=== PATIENT | male | born 1950 | race Caucasian/White ===

== ENCOUNTER → 2016-09-09 | Outpatient (CLI) | payer MEDICARE ==
[~2016-09-09] MED LIST: ALBU8.5H3 INH; AMLO5TAB2 PO; AMOX1TAB12 PO; CARV12.52 PO; CHLO25TA PO; HYDR-3144 PO; LACT1CAP24 PO; METO25TA91 PO; OMNIPAQUE 350 MG/ML, 100ML BOTTLE ONE; OXYC5TAB3 PO
== END | disposition home or self-care (01) ==
LOC: CFH 14:16
PROVIDERS: ATTEND Specialist
DX: C34.91 Malignant neoplasm of unspecified part of right bronchus or lung (principal); C34.92 Malignant neoplasm of unspecified part of left bronchus or lung; R59.9 Enlarged lymph nodes, unspecified
CPT/HCPCS: 71260; 74177; Q9967

== ENCOUNTER 2016-09-14 19:37 | Inpatient (IN) | payer MEDICARE ==
[~2016-09-14] VITALS: Ht 162.6 cm; Wt 71.4 kg
[~2016-09-14 19:37] MED LIST changes: -OMNIPAQUE 350 MG/ML, 100ML BOTTLE ONE
[2016-09-14] MEDS ORDERED: ONDANSETRON 2MG/ML, 2ML IVPush ONE (20:30)
[2016-09-14] MEDS ORDERED: SODIUM CHLORIDE 0.9% 1,000ML IVBOLUS ONE (20:30)
[2016-09-14] MEDS ORDERED: SODIUM CHLORIDE FLUSH 10ML SYR IVF ONE (20:30)
[2016-09-14] MEDS ORDERED: HYDROmorphone 1 MG/ML, 1ML ONE (21:19)
[2016-09-14] MEDS ORDERED: ONDANSETRON 2MG/ML, 2ML ONE (21:20)
[2016-09-14 21:35] LABS: BLOOD UREA NITROGEN 17 mg/dL (7-18)
[2016-09-14 21:52] LABS: IS PT STATUS REG ER OR PRE ER? YES
[2016-09-14] MEDS: HYDROmorphone 1 MG/ML, 1ML IVPush PRN (22:16)
[2016-09-14] MEDS ORDERED: OMNIPAQUE 350 MG/ML, 100ML BOTTLE ONE (22:30)
[2016-09-14] MEDS ORDERED: SODIUM CHLORIDE 0.9% 1,000 ML IV ONE (23:13)
[2016-09-14] MEDS ORDERED: ONDANSETRON 2MG/ML, 2ML IVPush PRN (23:30)
[2016-09-14] MEDS ORDERED: HYDROmorphone 1 MG/ML, 1ML IVPush PRN (23:30)
[2016-09-15] MEDS ORDERED: HEPARIN 5,000 UNITS/ML, 1ML SQ SCH
[2016-09-15] MEDS ORDERED: CEFTRIAXONE PMX 1GM/50ML 50 ML IV SCH
[2016-09-15] MEDS ORDERED: POLYETHYLENE GLYCOL 17 GM PACKET PO PRN
[2016-09-15] MEDS ORDERED: hydrALAzine 20 MG/ML, 1ML IV PRN
[2016-09-15] MEDS ORDERED: ONDANSETRON 2MG/ML, 2ML IVP PRN
[2016-09-15] MEDS ORDERED: AZITHROMYCIN 500 MG in SODIUM CHLORIDE 0.9% 250 ML IV SCH
[2016-09-15] MEDS ORDERED: BISACODYL 10 MG SUPP PR PRN
[2016-09-15] MEDS ORDERED: ACETAMINOPHEN 325 MG TABLET PO PRN
[2016-09-15] MEDS ORDERED: hydrALAzine 20 MG/ML, 1ML ONE (00:06)
[2016-09-15] MEDS ORDERED: CEFTRIAXONE PMX 2GM/50ML 50 ML ONE (00:16)
[2016-09-15] MEDS: CEFTRIAXONE PMX 2GM/50ML 50 ML IV SCH ×2 (00:22→12:11)
[2016-09-15] MEDS ORDERED: HYDROmorphone 1 MG/ML, 1ML ONE (00:24)
[2016-09-15] MEDS: HYDROmorphone 1 MG/ML, 1ML IVPush PRN (00:28)
[2016-09-15] MEDS: METRONIDAZOLE PMX 500MG/100ML 100 ML IV SCH ×3 (01:00→20:59)
[2016-09-15] MEDS: SODIUM CHLORIDE 0.9% 1,000 ML IV SCH ×3 (01:01→20:59)
[2016-09-15 01:10] VITALS: BP 179/98
[2016-09-15] MEDS ORDERED: ALBUTEROL SULFATE 2.5 MG/3 ML ONE (01:52)
[2016-09-15] MEDS ORDERED: ALBUTEROL SULFATE 2.5 MG/3 ML NPPB PRN (02:00)
[2016-09-15] MEDS: OXYcodone IR 5MG TABLET PO PRN ×4 (03:03→22:39)
[2016-09-15 03:05] VITALS: BP 160/87
[2016-09-15 04:54] LABS: BLOOD UREA NITROGEN 15 mg/dL (7-18)
[2016-09-15 04:58] LABS: ASPARTATE AMINO TRANSFERASE 64 U/L (15-37)
[2016-09-15] MEDS: CARVEDILOL 25 MG TABLET PO SCH ×2 (05:50→17:19)
[2016-09-15] MEDS ORDERED: HYDROmorphone 1 MG/ML, 1ML IV PRN (06:00)
[2016-09-15] MEDS ORDERED: CARVEDILOL 12.5 MG TABLET PO SCH (06:00)
[2016-09-15] MEDS: SENNA/DOCUSATE TABLET PO SCH (09:00)
[2016-09-15] MEDS ORDERED: LIDOCAINE 1%, 20ML ONE (09:07)
[2016-09-15] MEDS ORDERED: SODIUM BICARBONATE 4.2%, 5ML ONE (09:07)
[2016-09-15 09:28] VITALS: BP 148/85
[2016-09-15 09:51] LABS: CYTOLOGY BODY FLUID RECD INTO PATHOLOGY; CYTOLOGY BODY FLUID SOURCE PLEURAL FLUID
[2016-09-15 11:27] LABS: CELLS COUNTED 9; DILUTION 1; WBC SQUARES COUNTED 10
[2016-09-15 13:17] VITALS: BP 123/85
[2016-09-15 19:13] VITALS: BP 173/90
[2016-09-16 01:29] VITALS: BP 130/79
[2016-09-16] MEDS: SODIUM CHLORIDE 0.9% 1,000 ML IV SCH (03:56)
[2016-09-16 04:50] LABS: BLOOD UREA NITROGEN 14 mg/dL (7-18)
[2016-09-16] MEDS: CARVEDILOL 25 MG TABLET PO SCH ×2 (06:01→17:40)
[2016-09-16] MEDS: ENOXAPARIN 40 MG/0.4 ML SQ SCH (08:10)
[2016-09-16] MEDS: METRONIDAZOLE PMX 500MG/100ML 100 ML IV SCH ×3 (08:10→23:14)
[2016-09-16] MEDS: SENNA/DOCUSATE TABLET PO SCH (08:11)
[2016-09-16] MEDS: OXYcodone IR 5MG TABLET PO PRN ×4 (08:17→21:39)
[2016-09-16 08:28] VITALS: BP 138/74
[2016-09-16] MEDS: FUROSEMIDE 20 MG/2 ML IV SCH (13:33)
[2016-09-16 14:00] VITALS: BP 153/83
[2016-09-16 19:31] VITALS: BP 113/71
[2016-09-17] MEDS: CEFTRIAXONE PMX 2GM/50ML 50 ML IV SCH (00:17)
[2016-09-17 00:36] VITALS: BP 132/73
[2016-09-17] MEDS: OXYcodone IR 5MG TABLET PO PRN ×4 (01:40→21:11)
[2016-09-17] MEDS: CARVEDILOL 25 MG TABLET PO SCH ×2 (05:49→18:14)
[2016-09-17 07:38] VITALS: BP 141/82
[2016-09-17] MEDS: ENOXAPARIN 40 MG/0.4 ML SQ SCH (07:42)
[2016-09-17] MEDS: METRONIDAZOLE PMX 500MG/100ML 100 ML IV SCH (07:42)
[2016-09-17] MEDS: SENNA/DOCUSATE TABLET PO SCH (09:00)
[2016-09-17] MEDS: FUROSEMIDE 20 MG/2 ML IV SCH (09:13)
[2016-09-17 14:17] VITALS: BP 139/76
[2016-09-17 19:46] VITALS: BP 129/70
[2016-09-18 00:40] VITALS: BP 132/75
[2016-09-18] MEDS: OXYcodone IR 5MG TABLET PO PRN ×2 (01:24→05:27)
[2016-09-18 05:06] LABS: BLOOD UREA NITROGEN 18 mg/dL (7-18)
[2016-09-18] MEDS: CARVEDILOL 25 MG TABLET PO SCH ×2 (05:27→17:39)
[2016-09-18 06:53] LABS: ANISOCYTOSIS 1+
[2016-09-18] MEDS: ENOXAPARIN 40 MG/0.4 ML SQ SCH (06:58)
[2016-09-18 07:48] VITALS: BP 123/74
[2016-09-18] MEDS: SENNA/DOCUSATE TABLET PO SCH (08:27)
[2016-09-18] MEDS: FUROSEMIDE 20 MG/2 ML IV SCH (08:28)
[2016-09-18] MEDS ORDERED: NEOSPORIN OINT, 15GM ONE (13:13)
[2016-09-18] MEDS ORDERED: BUPIVACAINE/PF-EPI 0.5% 1:200K ONE (13:13)
[2016-09-18] MEDS ORDERED: TALC 30 GM AERO.PWD INTRAPL ONE (13:14)
[2016-09-18] MEDS ORDERED: BUPIVACAINE/PF 0.25% ONE (13:14)
[2016-09-18 13:32] VITALS: BP 115/80
[2016-09-18] MEDS ORDERED: FENTANYL PF 250 MCG/5ML ONE (13:47)
[2016-09-18] MEDS ORDERED: MIDAZOLAM 1 MG/ML, 2ML ONE (13:47)
[2016-09-18] MEDS ORDERED: SUCCINYLCHOLINE 20 MG/ML, 10ML ONE (14:14)
[2016-09-18] MEDS ORDERED: NEOSTIGMINE 1 MG/ML, 10ML ONE (14:14)
[2016-09-18] MEDS ORDERED: CEFAZOLIN 1,000 MG ONE (14:14)
[2016-09-18] MEDS ORDERED: ROCURONIUM 10 MG/ML ONE (14:14)
[2016-09-18] MEDS ORDERED: GLYCOPYRROLATE 0.2MG/1ML ONE (14:14)
[2016-09-18] MEDS ORDERED: PROPOFOL 10 MG/ML, 20ML ONE (14:14)
[2016-09-18] MEDS ORDERED: LACTATED RINGERS 1,000 ML IV SCH (14:17)
[2016-09-18] MEDS ORDERED: HYDROmorphone 1 MG/ML, 1ML ONE (14:47)
[2016-09-18] MEDS ORDERED: ACETAMINOPHEN 325 MG TABLET PO PRN (15:00)
[2016-09-18] MEDS ORDERED: ONDANSETRON 2MG/ML, 2ML IVPush PRN (15:00)
[2016-09-18] MEDS ORDERED: METOCLOPRAMIDE 5 MG/ML, 2ML IV PRN (15:00)
[2016-09-18] MEDS ORDERED: METOPROLOL 1 MG/ML, 5ML IV PRN (15:00)
[2016-09-18] MEDS ORDERED: LABETALOL 5MG/ML, 20ML IV PRN (15:00)
[2016-09-18] MEDS ORDERED: hydrALAzine 20 MG/ML, 1ML IV PRN (15:00)
[2016-09-18] MEDS ORDERED: OXYcodone 5 MG/5 ML ORAL.SOL UDC PO PRN (15:00)
[2016-09-18] MEDS ORDERED: MEPERIDINE/PF 25MG/0.5ML IVPush PRN (15:00)
[2016-09-18] MEDS ORDERED: EPHEDRINE 50 MG/ML, 1ML IVPush PRN (15:00)
[2016-09-18] MEDS ORDERED: HYDROmorphone 2 MG/ML, 1ML ONE (15:31)
[2016-09-18] MEDS ORDERED: OXYcodone 5 MG/5 ML ORAL.SOL UDC ONE (15:31)
[2016-09-18] MEDS ORDERED: FENTANYL PF 100 MCG/2ML ONE (15:31)
[2016-09-18] MEDS: HYDROmorphone 1 MG/ML, 1ML IV PRN ×3 (15:34→16:13)
[2016-09-18] MEDS: FENTANYL PF 100 MCG/2ML IV PRN ×4 (15:38→16:34)
[2016-09-18] MEDS ORDERED: ONDANSETRON 2MG/ML, 2ML IV PRN (17:30)
[2016-09-18] MEDS ORDERED: HYDROmorphone 1 MG/ML, 1ML IV PRN (17:30)
[2016-09-18] MEDS ORDERED: OXYcodone/APAP 5/325MG TABLET PO PRN (17:30)
[2016-09-18] MEDS: CEFOTETAN PMX 1GM/50ML 50 ML IVPB SCH (17:34)
[2016-09-18] MEDS: POTASSIUM CHLORIDE 20 MEQ in D5%-0.45% NACL 1,000 ML IV SCH (17:34)
[2016-09-18 18:56] VITALS: BP 90/61
[2016-09-18 21:48] VITALS: BP 102/65
[2016-09-18 23:13] VITALS: BP 91/57
[2016-09-19] MEDS ORDERED: MORPHINE SULFATE 4 MG/ML, 1ML ONE ×3 (00:18→07:36)
[2016-09-19] MEDS: morphine SULFATE 10 MG/ML, 1ML IV PRN ×5 (00:22→12:14)
[2016-09-19 01:14] VITALS: BP 91/60
[2016-09-19] MEDS: POTASSIUM CHLORIDE 20 MEQ in D5%-0.45% NACL 1,000 ML IV SCH ×2 (03:58→15:12)
[2016-09-19 04:45] VITALS: BP 106/71
[2016-09-19] MEDS: CARVEDILOL 25 MG TABLET PO SCH ×2 (05:25→18:28)
[2016-09-19 05:57] LABS: BLOOD UREA NITROGEN 23 mg/dL (7-18)
[2016-09-19 06:02] VITALS: BP 112/64
[2016-09-19] MEDS: CEFOTETAN PMX 1GM/50ML 50 ML IVPB SCH (06:04)
[2016-09-19 06:52] LABS: ANISOCYTOSIS 1+; MICROCYTOSIS 1+
[2016-09-19 06:53] VITALS: BP 104/64
[2016-09-19 06:53] LABS: POLYCHROMASIA 1+
[2016-09-19] MEDS ORDERED: HYDROmorphone 1 MG/ML, 1ML IV PRN (07:31)
[2016-09-19] MEDS: FUROSEMIDE 20 MG/2 ML IV SCH (07:39)
[2016-09-19] MEDS: ENOXAPARIN 40 MG/0.4 ML SQ SCH (07:41)
[2016-09-19] MEDS: SENNA/DOCUSATE TABLET PO SCH (07:41)
[2016-09-19] MEDS: OXYcodone IR 5MG TABLET PO PRN ×3 (10:20→19:14)
[2016-09-19 15:17] VITALS: BP 143/83
[2016-09-19 18:44] VITALS: BP 132/77
[2016-09-20] VITALS (11 sets, daily range): BP systolic 106–142; BP diastolic 61–76
[2016-09-20] MEDS: OXYcodone IR 5MG TABLET PO PRN ×5 (02:07→23:03)
[2016-09-20] MEDS: POTASSIUM CHLORIDE 20 MEQ in D5%-0.45% NACL 1,000 ML IV SCH ×2 (02:07→20:09)
[2016-09-20 03:09] LABS: BLOOD UREA NITROGEN 22 mg/dL (7-18)
[2016-09-20 03:39] LABS: ANISOCYTOSIS 1+; POLYCHROMASIA 1+
[2016-09-20] MEDS ORDERED: ACETAMINOPHEN 325 MG TABLET PO ONE (04:00)
[2016-09-20] MEDS: CARVEDILOL 25 MG TABLET PO SCH ×2 (06:15→17:55)
[2016-09-20] MEDS: SENNA/DOCUSATE TABLET PO SCH (09:00)
[2016-09-20] MEDS: ENOXAPARIN 40 MG/0.4 ML SQ SCH (09:00)
[2016-09-20] MEDS: HYDROcodone/APAP 5/325 TABLET PO PRN (09:09)
[2016-09-21 00:42] VITALS: BP 150/97
[2016-09-21] MEDS: HYDROcodone/APAP 5/325 TABLET PO PRN (01:31)
[2016-09-21 04:58] LABS: BLOOD UREA NITROGEN 18 mg/dL (7-18)
[2016-09-21 06:24] VITALS: BP 160/90
[2016-09-21] MEDS: CARVEDILOL 25 MG TABLET PO SCH ×2 (06:26→17:15)
[2016-09-21] MEDS: POTASSIUM CHLORIDE 20 MEQ in D5%-0.45% NACL 1,000 ML IV SCH ×2 (06:26→17:15)
[2016-09-21] MEDS: OXYcodone IR 5MG TABLET PO PRN ×4 (06:40→20:49)
[2016-09-21 07:54] VITALS: BP 115/74
[2016-09-21] MEDS: ENOXAPARIN 40 MG/0.4 ML SQ SCH (08:12)
[2016-09-21] MEDS: SENNA/DOCUSATE TABLET PO SCH (08:12)
[2016-09-21 13:07] VITALS: BP 138/84
[2016-09-21 17:14] VITALS: BP 151/92
[2016-09-21 19:26] VITALS: BP 151/84
[2016-09-22] MEDS: POTASSIUM CHLORIDE 20 MEQ in D5%-0.45% NACL 1,000 ML IV SCH ×2 (02:19→03:43)
[2016-09-22 03:34] VITALS: BP 161/63
[2016-09-22] MEDS: OXYcodone IR 5MG TABLET PO PRN (03:43)
[2016-09-22 05:55] VITALS: BP 149/86
[2016-09-22] MEDS: CARVEDILOL 25 MG TABLET PO SCH (05:57)
[2016-09-22 06:38] VITALS: BP 163/88
[2016-09-22] MEDS ORDERED: HYDR-3240 PO (08:55)
[2016-09-22] MEDS ORDERED: CARV25TA12 PO (08:55)
[2016-09-22] MEDS ORDERED: MORP15TA3 PO (08:55)
[2016-09-22] MEDS ORDERED: SENN1TAB7 PO (08:55)
[2016-09-22] MEDS: ENOXAPARIN 40 MG/0.4 ML SQ SCH (09:00)
[2016-09-22] MEDS: SENNA/DOCUSATE TABLET PO SCH (09:00)
== END 2016-09-22 11:20 | disposition home or self-care (01) | DRG 164 ==
LOC: ED 23:12 → EDIP 23:13 → ED 23:29 → 3NW 09-15 00:41 → DCLOUNGE 09-22 10:55
PROVIDERS: ADMIT Family Medicine; ATTEND Family Medicine
PROC: 0W9B3ZX Drainage of Left Pleural Cavity, Percutaneous Approach, Diagnostic (ICD-10-PCS; 2016-09-15)
PROC: 0BDP4ZZ Extraction of Left Pleura, Percutaneous Endoscopic Approach (ICD-10-PCS; 2016-09-18)
PROC: 0BBP4ZX Excision of Left Pleura, Percutaneous Endoscopic Approach, Diagnostic (ICD-10-PCS; 2016-09-18)
PROC: 3E0L3GC Introduction of Other Therapeutic Substance into Pleural Cavity, Percutaneous Approach (ICD-10-PCS; 2016-09-18)
PROC: 0W9B3ZZ Drainage of Left Pleural Cavity, Percutaneous Approach (ICD-10-PCS; principal; 2016-09-18 15:00)
PROC: 30233N1 Transfusion of Nonautologous Red Blood Cells into Peripheral Vein, Percutaneous Approach (ICD-10-PCS; 2016-09-20)
DX: C34.92 Malignant neoplasm of unspecified part of left bronchus or lung (principal); J91.0 Malignant pleural effusion; D68.9 Coagulation defect, unspecified; E44.0 Moderate protein-calorie malnutrition; E87.0 Hyperosmolality and hypernatremia; D62 Acute posthemorrhagic anemia; I10 Essential (primary) hypertension; D63.0 Anemia in neoplastic disease; D75.89 Other specified diseases of blood and blood-forming organs; F17.200 Nicotine dependence, unspecified, uncomplicated; G89.29 Other chronic pain; J38.00 Paralysis of vocal cords and larynx, unspecified; J44.9 Chronic obstructive pulmonary disease, unspecified; Z79.891 Long term (current) use of opiate analgesic; Z82.49 Family history of ischemic heart disease and other diseases of the circulatory system; Z68.27 Body mass index [BMI] 27.0-27.9, adult
CPT/HCPCS: 32555; 36415; 71010; 71275; 80048; 80053; 82040; 82042; 82150; 82945; 83615; 83735; 83880; 83986; 84157; 84484; 85025; 85610; 85730; 86850; 86900; 86923; 87070; 87075; 87205; 88112; 88305; 89051; 93005; 94640; 96361; 96374; 96375; C1729; J0690; J0696; J1170; J1644; J1650; J2250; J2405; J2704; J2710; J3010; J3480; J3490; Q9967; J0330; J1940; J2270; J7030; J7120; P9016; S0074